=== PATIENT | female | born 1980 | race American Indian/Alaskan Native ===

== ENCOUNTER 2018-09-06 16:48 | Observation (INO) | payer BC ==
--- NOTE | 2018-09-06 16:59 | Emergency Department Report ---
Blank Doc - Documentation Documentation: This is a 38-dilshad-old female that was sent by PCP for low H/H. This initial assessment/diagnostic orders/clinical plan/treatment(s) is/are subject to change based on patient's health status, clinical progression and re- assessment by fellow clinical providers in the ED. Further treatment and workup at subsequent clinical providers discretion. Patient/guardians urged not to elope from the ED as their condition may be serious if not clinically assessed and managed. Initial orders include: 1- Patient sent to MAIN ED for further evaluation and treatment 2- labs
[2018-09-06 18:07] LABS: Mean Corpuscular HGB Conc 28 % (30-34); Platelet Count 489 K/mm3 (140-440); Red Blood Count 3.45 M/mm3 (3.65-5.03)
[2018-09-06 18:16] LABS: Hemoglobin 5.5 gm/dl (10.1-14.3)
[2018-09-06 18:17] LABS: Hematocrit 19.6 % (30.3-42.9); Mean Corpuscular Volume 57 fl (79-97)
[2018-09-06 18:18] LABS: Alanine Aminotransferase 10 units/L (7-56); Albumin 4.1 g/dL (3.9-5); BUN/Creatinine Ratio 10; Blood Urea Nitrogen 9 mg/dL (7-17); Hemolysis Index 0
[2018-09-06 18:30] LABS: Bilirubin,Direct < 0.2 mg/dL (0-0.2)
[2018-09-06 18:53] LABS: Basophils % (Manual) 0 % (0.0-1.8); Total Cells Counted 100
[2018-09-06 18:59] LABS: Anisocytosis 2+
[2018-09-06 19:11] LABS: Ovalocytes 1+; Platelet Estimate Consistent w Auto; Poikilocytosis 1+; Tear Drop Cells 1+
[2018-09-06 19:12] LABS: Hypochromasia 3+
[2018-09-06] MEDS ORDERED: NACL 0.9% 500 ML 500 ML IV ONE (20:49)
[2018-09-06] MEDS ORDERED: ZESTRIL PO ONE (20:49)
--- NOTE | 2018-09-06 20:52 | Emergency Department Report ---
HPI - General Chief Complaint: Medical Clearance Time Seen by Provider: 09/06/18 16:57 - HPI HPI: 38-year-old female was sent in by her PCP after she was found to have some low hemoglobin. The patient was having some general blood work d one and was found to have hemoglobin of 6. She denies any history of anemia and denies any bleeding. She says that she does occasionally have a heavy menstrual cycle but did not have one this month. She denies any fever, chest pain, shortness of breath, weakness or any other physical complaints at this time. Her primary care physician is Dr. Alexander. She also has a history of hypertension for which he takes lisinopril 20 mg but did not take it today as she just got a refill of her prescription. No recent travel or sick contacts at home. ED Past Medical Hx - Past Medical History Previous Medical History?: Yes Hx Hypertension: Yes Hx Diabetes: Yes - Surgical History Past Surgical History?: No - Social History Smoking Status: Never Smoker Substance Use Type: None ED Review of Systems ROS: Stated complaint: LAB WORK TEST Other details as noted in HPI Comment: All other systems reviewed and negative Constitutional: denies: chills, fever Eyes: denies: eye pain, vision change ENT: denies: ear pain, throat pain Respiratory: denies: cough, shortness of breath Cardiovascular: denies: chest pain, palpitations Gastrointestinal: denies: abdominal pain, vomiting Genitourinary: denies: dysuria, frequency Musculoskeletal: denies: back pain, arthralgia Skin: denies: rash, lesions Neurological: denies: headache, weakness Physical Exam - Physical Exam Vital Signs: Vital Signs 09/06/18 16:58 Temperature 98.1 F Pulse Rate 100 H Respiratory 18 Rate Blood Pressure 187/84 O2 Sat by Pulse 100 Oximetry Physical Exam: GENERAL: The patient is well-developed well-nourished. HEENT: Normocephalic. Atraumatic. Patient has moist mucous membranes. EYES: Extraocular motions are intact. Pupils are equal and reactive to light b ilaterally. Pale conjunctiva. NECK: Supple. Trachea is midline. CHEST/LUNGS: Clear to auscultation. There is no respiratory distress noted. HEART/CARDIOVASCULAR: Regular. There is no tachycardia. There is no obvious murmur. ABDOMEN: Abdomen is soft, nontender. Patient has normal bowel sounds. There is no abdominal distention. SKIN: Skin is warm and dry. NEURO: The patient is awake, alert, and oriented. The patient is cooperative. The patient has no focal neurologic deficits. The patient has normal speech. MUSCULOSKELETAL: There is no tenderness or deformity. There is no evidence of acute injury. ED Course Vital Signs 09/06/18 16:58 Temperature 98.1 F Pulse Rate 100 H Respiratory 18 Rate Blood Pressure 187/84 O2 Sat by Pulse 100 Oximetry ED Medical Decision Making - Lab Data Result diagrams: 09/06/18 17:29 09/06/18 17:29 - Medical Decision Making Patient was sent in secondary to some recent anemia found on blood work. Hemoglobin today is 5.5. No complaints of any bleeding or any significant symptomatic anemia. 3 units of packed red blood cells were ordered which should bring the patient close to a hemoglobin of 8.5. She will be admitted to the hospital for further evaluation of her microcytic anemia and for monitoring of her transfusions. She was accepted for admission by the hospitalist, Dr. Simms. - Differential Diagnosis iron deficiency, B12 deficiency, menorrhagia, beta thalassemia Critical Care Time: No Critical care attestation.: If time is entered above; I have spent that time in minutes in the direct care of this critically ill patient, excluding procedure time. ED Disposition Clinical Impression: Anemia requiring transfusions, Microcytic anemia Hypertension Qualifiers: Hypertension type: essential hypertension Qualified Code(s): I10 - Essential (primary) hypertension Disposition: OP ADMIT IP TO THIS HOSP Is pt being admited?: Yes Condition: Fair Instructions: Hypertension (ED) Time of Disposition: 21:44
[2018-09-06 21:56] LABS: Bilirubin,Urine NEG (Negative); Blood,Urine NEG (Negative); Color,Urine Straw (Yellow); Protein,Urine <15 mg/dL mg/dL (Negative); Urobilinogen,Urine < 2.0 mg/dL (<2.0)
[2018-09-06] MEDS ORDERED: NACL 0.9% IV ONE (22:15)
[2018-09-06] MEDS ORDERED: APRESOLINE IV PRN (22:34)
--- NOTE | 2018-09-06 22:35 | History and Physical Report ---
History of Present Illness Date of examination: 09/06/18 History of present illness: 38-year-old history of hypertension, diabetes was sent to the emergency room for evaluation of abnormal blood work. Patient went to primary care physician to get a refill of her prescription, blood work was done, which showed a hemoglobin of 6, she was sent to the emergency room for further evaluation. She has a history of anemia, was started on iron therapy 2 years ago but has been noncompliant. She has heavy cycles, typically lasting 6 days. Denies shortness of breath, chest pain, blurred vision, dizziness Review of systems Constitutional: no weight loss, chills, fever Ears, eyes, nose, mouth and throat: no nasal congestion, no nasal discharge, no sinus pressure, no vision change, no red eye. Neck: No neck pain or rigidity. Cardiovascular: no palpitations, chest pain Respiratory: no cough, shortness of breath Gastrointestinal: no hematochezia, abdominal pain Genitourinary : no frequency , no hematuria Musculoskeletal: no joint swelling or muscle ache Integumentary: no rash, no pruritis Neurological: no parathesias, no focal weakness Endocrine: no cold or heat intolerance, no polyuria or polydipsia Hematologic/Lymphatic: no easy bruising, no easy bleeding, no gland swelling Allergic/Immunologic: no urticaria, no angioedema. PAST MEDICAL HISTORY: hypertension, diabetes PAST SURGICAL HISTORY: None SOCIAL HISTORY: Denies alcohol, tobacco, drugs FAMILY HISTORY: Hypertension Medications and Allergies Allergies Allergy/AdvReac Type Severity Reaction Status Date / Time No Known Allergies Allergy Unverified 09/06/18 16:51 Home Medications Medication Instructions Recorded Confirmed Last Taken Type Ferrous Sulfate [Feosol 325 MG tab] 325 mg PO QDAY 30 Days #30 tablet 09/07/18 Unknown Rx Lisinopril [Zestril TAB] 20 mg PO QDAY 30 Days #30 tablet 09/07/18 Unknown Rx Active Meds: Active Medications Hydralazine HCl (Apresoline) 5 mg IV Q6H PRN PRN Reason: Hypertension Exam - Physical Exam Narrative exam: Gen. appearance: Patient lying in bed, no apparent distress HEENT: Normocephalic, atraumatic, pupils equally round and reactive to light, extraocular movement intact, and no sclericterus,. No JVD or thyromegaly or nodule,neck supple, no carotid bruit ,mucous membranes moist, no exudate or erythema Heart: S1, S2, regular rate and rhythm Lungs: Clear bilaterally, breathing comfortable Abdomen: Positive bowel sounds, non-tender, nondistended, no organomegaly Extremity:no edema cyanosis, clubbing Skin: no rash, dry, warm Neuro: Oriented 3, cranial nerves II-12 intact, speech is fluent, motor and sensory intact - Constitutional Vitals: Temp Pulse Resp BP Pulse Ox 98.6 F 81 21 184/95 100 09/06/18 22:23 09/06/18 22:23 09/06/18 22:23 09/06/18 22:23 09/06/18 22:02 Results - Labs CBC & Chem 7: 09/07/18 07:34 09/07/18 07:34 Labs: Abnormal lab results 09/06/18 09/06/18 09/06/18 Range/Units 17:29 17:29 17:29 RBC 3.45 L (3.65-5.03) M/mm3 Hgb 5.5 L* (10.1-14.3) gm/dl Hct 19.6 L* (30.3-42.9) % MCV 57 L (79-97) fl MCH 16 L (28-32) pg MCHC 28 L (30-34) % RDW 22.0 H (13.2-15.2) % Plt Count 489 H (140-440) K/mm3 Glucose 127 H (65-100) mg/dL Crossmatch See Detail Assessment and Plan Assessment Anemia Menorrhagia Hypertension Diabetes Plan Admit to medicine Transfuse packed red blood cells Check iron studies Check fingersticks and initiate insulin sliding scale DVT prophylaxis
[2018-09-06] MEDS ORDERED: BENADRYL IV PRN (23:09)
[2018-09-06] MEDS ORDERED: TYLENOL PO PRN (23:09)
[2018-09-06] MEDS ORDERED: ZOFRAN IV PRN (23:09)
[2018-09-06] MEDS ORDERED: PERCOCET 5/325 PO PRN (23:09)
[2018-09-06] MEDS ORDERED: SODIUM CHLORIDE FLUSH SYRINGE 10 ML IV PRN (23:09)
[2018-09-06] MEDS ORDERED: D50W (25GM) Syringe IV PRN (23:10)
[2018-09-07] MEDS ORDERED: NACL 0.9% 250ML 250 ML ONE ×2 (00:11→02:06)
[2018-09-07] MEDS ORDERED: HumaLOG SUB-Q SCH (07:30)
[2018-09-07 07:52] LABS: Hematocrit 31.3 % (30.3-42.9); Hemoglobin 9.6 gm/dl (10.1-14.3); Mean Corpuscular HGB Conc 31 % (30-34); Platelet Count 427 K/mm3 (140-440); Red Blood Count 4.67 M/mm3 (3.65-5.03)
[2018-09-07 07:56] LABS: Mean Corpuscular Volume 67 fl (79-97); Red Cell Distribution Width 34.2 % (13.2-15.2)
[2018-09-07 08:14] LABS: BUN/Creatinine Ratio 10; Blood Urea Nitrogen 6 mg/dL (7-17); Calcium 8.8 mg/dL (8.4-10.2); Hemolysis Index 12
--- NOTE | 2018-09-07 09:48 | Discharge Summary ---
<PERLA LAGOS - Last Filed: 09/07/18 10:55> Providers - Providers Date of Admission: 09/06/18 22:33 Date of discharge: 09/07/18 Attending physician: SWEETIE OROZCO MD Primary care physician: ROLA GREENE Hospitalization Reason for admission: Anemia Condition: Good Hospital course: Ms. Rubio is a 38 y.o. Female with known history of hypertension, diabetes, anemia noncompliant with oral iron replacement therapy and menorrhagia that presented to the ED on 09/06 with c/o of abnormal blood work. Pt went to her PCP on 09/04 to get a refill on her antihypertensive medicine, and have blood work done. She received a call from her PCP office advising her that her Hgb was 6 and she needs to go to the ED for further evaluation and treatment. On admission Hgb was 5.5. She received 3u PRBC, and this morning her Hgb is 9.6. She has received oral iron replacement as well. She was given Lisinopril to optimize BP. Pt advised to follow up PCP and [facility] as outpatient. Discharge planning has been discussed with pt. She verbalized understanding and is in agreement. Diagnosis: Anemia HTN DM Hx of Menorrhagia Disposition: DC-01 TO HOME OR SELFCARE Time spent for discharge: 33 min Core Measure Documentation - Palliative Care Palliative Care/ Comfort Measures: Not Applicable - Core Measures Any of the following diagnoses?: none - VTE Discharge Requirements Deep Vein Thrombosis/Pulmonary Embolism Present on Admission: No Contraindication No Overlap Therapy order at DC: Not Indicated Exam - Constitutional Vitals: Temp Pulse Resp BP Pulse Ox 98.1 F 102 H 20 155/90 98 09/07/18 04:15 09/07/18 04:15 09/07/18 04:15 09/07/18 04:15 09/07/18 04:15 General appearance: Present: no acute distress, well-nourished - EENT Eyes: Present: PERRL, EOM intact ENT: hearing intact, clear oral mucosa, dentition normal - Neck Neck: Present: supple, normal ROM - Respiratory Respiratory effort: normal Respiratory: bilateral: CTA - Cardiovascular Heart rate: 92 (bpm) Rhythm: regular Heart Sounds: Present: S1 & S2. Absent: rub, click - Extremities Extremities: pulses symmetrical, No edema Peripheral Pulses: within normal limits - Abdominal General gastrointestinal: Present: soft, non-tender, non-distended, normal bowel sounds Female genitourinary: Present: normal - Rectal Rectal Exam: deferred - Integumentary Integumentary: Present: clear, warm, dry - Musculoskeletal Musculoskeletal: gait normal, strength equal bilaterally - Psychiatric Psychiatric: appropriate mood/affect, intact judgment & insight - Neurologic Neurologic: CNII-XII intact, moves all extremities - Allied Health Allied health notes reviewed: nursing Plan Activity: no restrictions Diet: low salt Follow up with: ROLA GREENE MD [Primary Care Provider] - 7 Days [facility] OPERATOR, [facility] [Other] - 7 Days Prescriptions: Ferrous Sulfate [Feosol 325 MG tab] 325 mg PO QDAY 30 Days #30 tablet Lisinopril [Zestril TAB] 20 mg PO QDAY 30 Days #30 tablet <SWEETIE OROZCO - Last Filed: 09/07/18 15:59> Providers - Providers Date of Admission: 09/06/18 22:33 Attending physician: SWEETIE ROOZCO MD Primary care physician: ROLA GREENE Hospitalization Reason for admission: Severe Anemia Hospital course: I saw and evaluated the patient. I agree with the findings and the plan of care as documented in the Nurse Practitioner's perla [place] note. patient was admitted for severe anemia, transfused H/H stable and DC home. patient advised to have follow up with [facility] as an O/P. - Discharge Diagnoses (1) Anemia requiring transfusions Status: Acute (2) Hypertension Status: Acute Qualifiers: Hypertension type: essential hypertension Qualified Code(s): I10 - Essential (primary) hypertension (3) Microcytic anemia Status: Acute Core Measure Documentation - Palliative Care Palliative Care/ Comfort Measures: Not Applicable - Core Measures Any of the following diagnoses?: none Exam - Constitutional Vitals: Temp Pulse Resp BP Pulse Ox 98.1 F 102 H 20 159/94 98 09/07/18 04:15 09/07/18 04:15 09/07/18 04:15 09/07/18 11:12 09/07/18 04:15
[2018-09-07] MEDS ORDERED: SODIUM CHLORIDE FLUSH SYRINGE 10 ML IV SCH (10:00)
[2018-09-07] MEDS ORDERED: FEOSOL PO SCH (10:00)
[2018-09-07] MEDS ORDERED: ZESTRIL PO SCH (10:00)
[2018-09-07 11:18] VITALS: BP 159/94
[2018-09-07 11:49] LABS: Anisocytosis 2+; Band Neutrophils # (Manual) 0.1 K/mm3; Basophils % (Manual) 0 % (0.0-1.8); Eosinophils % (Manual) 0 % (0.0-4.3); Total Cells Counted 100
[2018-09-07 11:50] LABS: Hypochromasia 2+; Ovalocytes 1+; Platelet Estimate Consistent w Auto; Poikilocytosis 1+; Tear Drop Cells Few
== END 2018-09-07 12:40 | disposition home or self-care (01) ==
LOC: ED 16:48 → 3A 22:33
PROVIDERS: ADMIT Internal Medicine; ATTEND Internal Medicine
DX: D50.8 Other iron deficiency anemias (principal); N92.0 Excessive and frequent menstruation with regular cycle; E11.9 Type 2 diabetes mellitus without complications; I10 Essential (primary) hypertension
CPT/HCPCS: 36415; 80048; 80076; 81001; 83690; 84703; 85007; 85025; 86850; 86900; 86901; 86920; 96374; 99284; G0378; J0360; J7040; J7050; P9016; 96372